=== PATIENT | male | born 1990 | race African-American/Black ===

== ENCOUNTER 2022-05-24 14:43 | Emergency (ER) | payer SELFPAY ==
[~2022-05-24] VITALS: Ht 175.3 cm; Wt 87.0 kg
[2022-05-24 17:04] LABS: BASOPHILS % 0.7 % (0.0-2.0); EOSINOPHILS % 2.7 % (0.0-5.0); HEMATOCRIT. 46.8 % (42.0-52.0); HEMOGLOBIN. 15.9 g/dL (14.0-18.0); LYMPHOCYTES % 31.2 % (20.0-50.0); MEAN CORPUSCULAR HEMOGLOBIN 31.2 pg (28.0-32.0); MEAN CORPUSCULAR VOLUME 91.9 fL (80.0-94.0); MEAN PLATELET VOLUME 7.9 fl (7.4-10.4); MONOCYTES % 10.6 % (2.0-8.0); NEUTROPHILS % 54.8 % (40.0-76.0); PLATELET 311 x1000/uL (130-400); RED BLOOD CELL COUNT 5.09 mill/uL (4.7-6.1); RED CELL DISTRIBUTION WIDTH 13.8 % (11.6-14.6)
[2022-05-24 17:07] LABS: CHLORIDE 103 mEq/L (98-107)
[2022-05-24 17:16] LABS: ETHANOL BLOOD < 10 mg/dL
[2022-05-24 21:48] VITALS: BP 119/55
== END 2022-05-25 00:40 | disposition left against medical advice (07) ==
LOC: ER 14:53 → CANBEDREQ 05-25 21:50
DX: R40.4 Transient alteration of awareness (principal)
CPT/HCPCS: 36415; 80053; 80307; 80320; 80329; 85025; 93005; 99285; G0480